=== PATIENT | female | born 1935 | race Caucasian/White ===

== ENCOUNTER 2017-04-14 09:32 | Outpatient (CLI) | payer MEDICARE, BC ==
[~2017-04-14] VITALS: Ht 160 cm; Wt 70.9 kg
--- NOTE | ~2017-04-14 | HEMODYNAMI ---
PATIENT:BLACK DELCID MEDICAL RECORD: [id number] : 31 LOCATION:D.CAT ADMISSION DATE: 04/14/17 Generatedon:04/14/201716:04 Patient name: BLACK DELCID Patient #: [id number] SSN: : 1935 Date of study: 04/14/2017 Page: Of Hemodynamic Procedure Report Patient Data Patient Demographics Procedure consent was obtained First Name: BLACK Gender: Female Last Name: BHAVIN : 1935 Middle Initial: MICAH Age: 81 year(s) Patient #: [id number] Race: Unknown Additional ID: [id number] Contact details [address]: [address] [place] [address] [address]IVE State: [place] City: [place] Zip code: [address] Past Medical History Allergies Allergen Reaction Date Comments Reported Other allergy 04/14/2017 PCN Admission Admission Data Admission Date: 04/14/2017 Admission Time: 9:32 Procedure Procedure Types Cath Procedure Diagnostic Procedure LHC LHC w/Coronaries FFR/IVUS Intra-Coronary IVUS Initial PCI Procedure Coronary Stent Initial Miscellaneous Procedures Moderate Sedation up to 30 minutes Procedure Description Procedure Date Procedure Date: 04/14/2017 Procedure Start Time: 15:44 Procedure End Time: 16:04 Procedure Staff Name Function Paulo Felipe MD Performing Physician Phoebe Betts RT Scrub Adan Mace RN Nurse Shanice Moody RT Monitor Procedure Data Cath Procedure Fluoroscopy Diagnostic fluoroscopy Total fluoroscopy Time: 4.2 time: 4.2 min min Diagnostic fluoroscopy Total fluoroscopy dose: 589 dose: 589 mGy mGy Contrast Material Contrast Material Type Amount (ml) Isovue 300 65 Entry Location Entry Primary Successful Side Size Upsize Upsize Entry Closure Succes sful Closure Location (Fr) 1 (Fr) 2 (Fr) Remarks Device Remarks Femoral Right 5 Fr 6 Fr artery Short Estimated blood loss: 10 ml Diagnostic catheters Device Type Used For End Catheter Placement Cordis 5Fr Pigtail LV Angiography Catheter (MP) Cordis 5Fr JL 4.0 Left Coronary Catheter (MP) Angiography Cordis 5Fr 3DRC Catheter Right Coronary (MP) Angiography Procedure Complications No complications Procedure Medications Medication Administration Route Dosage Oxygen NC 2 l/min Heparin Flush Bag added to field 2 bags (1000units/500ml NS) 0.9% NaCl I.V. 100 ml/hr Fentanyl I.V. 50 mcg Versed I.V. 1 mg Fentanyl I.V. 50 mcg Versed I.V. 1 mg Heparin Bolus I.V. 4000 units Hemodynamics Rest Heart Rate: 86 (bpm) Snapshots Pre Cath Intra NCS Post Cath Vital Signs Time Heart Resp SPO2 NIBP (mmHg) Rhythm Pain Sedation Rate (ipm) (%) Status Level (bpm) 15:29:58 85 20 94 138/69(112) NSR 0 (11) 10(A) , No pain 15:34:12 88 18 92 124/75(106) NSR 0 (11) 10(A) , No pain 15:38:26 70 16 97 125/64(103) NSR 0 (11) 9(A) , No pain 15:42:42 71 16 82 119/58(96) NSR 0 (11) 9(A) , No pain 15:46:56 71 17 93 115/56(86) NSR 0 (11) 9(A) , No pain 15:51:08 72 16 91 118/58(87) NSR 0 (11) 9(A) , No pain 15:55:22 73 16 96 115/59(94) NSR 0 (11) 9(A) , No pain 15:59:34 75 17 98 122/62(94) NSR 0 (11) 9(A) , No pain 16:01:45 76 18 97 118/62(93) NSR 0 (11) 9(A) , No pain Medications Time Medication Route Dose Verified Delivered Reason Notes Effectiveness by by 15:35:34 Oxygen NC 2 Adan Arellnao Per physician l/min Rodri Mace RN RN 15:35:45 Heparin Flush added 2 Adan Arellano used for Bag to bags Rodri Mace RN procedure (1000units/500ml field RN NS) 15:35:55 0.9% NaCl I.V. 100 Adan Arellano Per physician ml/hr Rodri Mace RN RN 15:37:15 Fentanyl I.V. 50 Adan Adan for sedation mcg Rodri Mace RN RN 15:37:21 Versed I.V. 1 mg Adan Arellano for sedation Rodri Mace RN RN 15:54:49 Fentanyl I.V. 50 Adan Arellano for sedation mcg Rodri Mace RN RN 15:54:51 Versed I.V. 1 mg Adan Arellano for sedation Rodri Mace RN RN 15:56:32 Heparin Bolus I.V. 4000 Adan Adan for units Rodri Mace RN anticoagulation project archivist Log Time Note 14:50:49 Adan Mace RN sent for patient. Start room use. 14:57:03 Time tracking: Regular hours 14:57:07 Plan of Care:Hemodynamics will remain stable., Cardiac rhythm will remain stable., Comfort level will be maintained., Respiratory function will remain adequate., Patient/ family verbilizes understanding of procedure., Procedure tolerated without complication., Recovers from procedure without complications.. 15:05:47 Patient received from Pre/Post Procedure Room to CCL 2 Alert and oriented. Tansferred to table in Supine position. 15:06:02 H&P Date Dictated: 04/07/2017 Within 30 days and on chart., H&P Addendum completed by physician on day of procedure. (MUST COMPLETE FOR ALL OUTPATIENTS). 15:06:04 Pre-procedure instructions explained to patient. 15:06:38 Pre-op teaching completed and patient verbalized understanding. 15:06:41 Family in waiting room. 15:06:43 Patient NPO since Midnight. 15:07:04 Patient allergic to Other allergyPCN 15:07:12 Is the patient allergic to Iodine/contrast media? No. 15:24:11 Snore? Yes 15:24:23 Dentures? Yes in tight 15:24:51 Sleep apnea? No 15:24:57 Is patient on blood thinner?Yes 15:25:01 ACC The patient was administered the following blood thiners within the last 24 hours: ACCAspirin, ACCPlavix 15:25:04 Patient diabetic? No. 15:25:11 Patient pain scale 0/10 ?. 15:25:27 IV patent on arrival in left forearm with 0.9% NaCl at KVO. 15:25:49 Lab results completed and on chart. 15:25:57 Right Radial & Right Groin area was prepped with chlora-prep and draped in sterile fashion 15::58 Alarms reviewed by R. N. 15::58 Sharps counted by scrub and verified by R.N. 15::03 Warm blankets applied, and camden hugger turned on for patient comfort. 15::04 Correct patient and procedure confirmed by team. 15::06 Signed procedure consent form obtained from patient. 15::54 Vital chart was started 15::22 ECG and BP/O2 sat monitors applied to patient. 15:30:24 Baseline sample Acquired. 15::28 Rhythm: sinus rhythm 15::30 Full Disclosure recording started 15::34 Physician paged 15::35 Physician arrived 15::36 --------ALL STOP TIME OUT------ 15:30:37 Final Timeout: patient, procedure, and site verified with staff and physician. All members of the team are in agreement. 15:30:39 Right groin site verified by team. 15:30:43 Physical assessment completed. ASA score P 2 - A patient with mild systemic disease as per Paulo Felipe MD. 15:30:49 Sedation plan: IV Moderate Sedation Versed, Fentanyl 15:33:24 Deviated septum? No 15:33:24 Opens mouth fully? Yes 15:33:25 Sticks out tongue? Yes 15:33:27 Airway obstruction? No ? 15:33:31 Pre procedure: right dorsailis pedis pulse 2+ Normal; easily identifiable; not easily obliterated 15:34:44 Use device set Femoral Dx 15:34:45 Acist Syringe opened to sterile field. 15:34:45 Bag Decanter opened to sterile field. 15:34:46 Medline Cath Pack opened to sterile field. 15:34:46 Terumo 5Fr [place] Sheath opened to sterile field. 15:34:47 St Cornell 260cm J .035 wire opened to sterile field. 15:34:51 Acist Hand Control opened to sterile field. 15:34:52 Acist Manifold opened to sterile field. 15:34:53 Diagnostic Infinity 5Fr Multipack catheter opened to sterile field. 15:34:53 Tegaderm 4 x 4 opened to sterile field. 15:35:34 Oxygen 2 l/min NC was administered by Adan Mace RN; Per physician; 15:35:45 Heparin Flush Bag (1000units/500ml NS) 2 bags added to field was administered by Adan Mace RN; used for procedure; 15:35:55 0.9% NaCl 100 ml/hr I.V. was administered by Adan Mace RN; Per physician; 15:37:15 Fentanyl 50 mcg I.V. was administered by Adan Mace RN; for sedation; 15:37:21 Versed 1 mg I.V. was administered by Adan Mace RN; for sedation; 15:42:16 Zero performed for pressure channel P1 15:44:55 Procedure started. 15:44:59 Local anesthetic to right femoral artery with Lidocaine 2% by Paulo Felipe MD.INITIAL ACCESS ONLY 15:45:34 A Cordis 5Fr Pigtail Catheter (MP) was advanced over the wire and used for LV Angiography. 15:45:46 A 5 Fr sheath was inserted into the Right Femoral artery 15:45:51 [employer] Super Stiff Angled 260cm glide wire opened to sterile field. 15:45:58 SS Cummings wire advanced. 15:46:41 Wire removed. 15:46:48 LV gram done using EDWARDS 15:46:56 EF : 50 % 15:47:03 Injector settings: Ml/sec: 3, Volume: 6, 15:47:04 Catheter removed. 15:47:12 A Cordis 5Fr JL 4.0 Catheter (MP) was advanced over the wire and used for Left Coronary Angiography. 15:49:01 Catheter removed. 15:49:12 A Cordis 5Fr 3DRC Catheter (MP) was advanced over the wire and used for Right Coronary Angiography. 15:50:37 Catheter removed. 15:51:08 Petersen Whisper J 300cm 0.014 guide wire opened to sterile field. 15:51:09 Apexigen BasixCompak Inflation Kit opened to sterile field. 15:51:10 Merit Prelude 6Fr Femoral Sheath (NO COST SUPPLY) opened to sterile field. 15:51:24 FriendsEATtronic Launcher 6Fr 3DRC guide catheter opened to sterile field. 15:52:05 Sheath upsized to a 6 Fr Short. 15:52:16 6 Fr 3DRC guide catheter was inserted over the wire 15:52:57 [place] IVUS Catheter opened to sterile field. 15:53:07 Whisper wire advanced. 15:53:45 IVUS catheter advanced over wire. 15:54:49 Fentanyl 50 mcg I.V. was administered by Adan Mace RN; for sedation; 15:54:51 Versed 1 mg I.V. was administered by Adan Mace RN; for sedation; 15:55:31 IVUS pass to RCA lesion performed. 15:55:32 IVUS catheter removed over wire. 15:56:32 Heparin Bolus 4000 units I.V. was administered by Adan Mace RN; for anticoagulation; 15:57:46 Inflation Number: 1 A FriendsEATtronic Integrity 4.0 X 18 stent was prepped and advanced across the Prox RCA. The stent was deployed at 15 JAYLENE for 0:05 (min:sec). 15:57:58 Stent catheter was removed intact over wire. 15:57:59 Wire removed. 15:58:00 Guide catheter removed. 15:58:16 Cordis 6Fr Exoseal opened to sterile field. 15:58:19 Procedure ended.(Physican Out) 15:59:24 Fluoroscopy time 04.20 minutes. 15:59:51 Fluoroscopy dose: 589 mGy 15:59:51 Flurop Dose total: 589 15:59:57 Contrast amount:Isovue 300 65ml. 15:59:58 Sharps counted by scrub and verified by R.N. 16:00:00 Insertion/operative site no bleeding no hematoma. 16:00:03 Post-op/insertion site Right Femoral artery dressed using a 4 x 4 and Tegaderm. 16:00:06 Post right femoral artery:stable, clean and dry 16:00:07 Post Procedure Pulses reassessed and unchanged 16:00:58 Post procedure: right dorsailis pedis pulse 2+ Normal; easily identifiable; not easily obliterated. 16:01:01 Post-procedure physical assessment completed. ASA score P 2 - A patient with mild systemic disease as per Paulo Felipe MD. 16:01:04 Post procedure rhythm: unchanged. 16:01:07 Estimated blood loss: 10 ml 16:01:08 Post procedure instruction explained to patient.Patient verbalizes understanding. 16::08 Patient needs reinforcement of post procedure teaching. 16::22 Procedure type changed to Cath procedure, Diagnostic procedure, LHC, C w/Coronaries, FFR/IVUS, Intra-Coronary IVUS Initial, PCI procedure, Coronary Stent Initial, Miscellaneous Procedures, Moderate Sedation up to 30 minutes 16:01:27 Procedure Complication : No complications 16:01:29 See physician's report for complete and final results. 16:03:42 Procedure and supply charges have been captured, reviewed, submitted and are correct. 16:03:43 Vital chart was stopped 16:03:47 Report given to Pre/Post Procedure Room. 16:03:50 Patient transfered to Pre/Post Procedure Room with Stretcher. 16:04:02 Procedure ended. 16:04:02 Full Disclosure recording stopped 16:04:06 End room use (Document Last) Intervention Summary Intervention Notes Time ActionType Lesion and Equipment Action# Pressure Duration Attributes Used 15:57:[address] Place stent Prox RCA Medtronic 1 15 00:05 Integrity 4.0 X 18 stent Device Usage Item Name Manufacture Quantity Catalog Number Hospital Part Current Minim al Lot# / Charge Number Stock Stock Serial# Code Acist Acist 1 [id number] 471085 [id number] 20 Syringe [employer] Inc Bag Microtek 1 2002S 038798 17638 167225 5 [employer] Medline Cardinal 1 [id number] 096808 52548 946418 5 Cath Pack Health Terumo 5Fr Terumo 1 [id number] 010639 551126 231526 [address] [place] [address] Cornell 1 [id number] 793200 796645 219475 30 260cm J .035 wire Acist Hand Acist 1 54999 921092 725558 214307 5 Control Medical Systems Inc Acist Acist 1 43186 101854 803243 540361 5 Manifold Medical Systems Inc Diagnostic Cardinal 1 [id number] 119828 39276 136442 30 Infinity Health 5Fr Multipack catheter Tegaderm 4 3M 1 1626W 962216 143128 083866 5 x 4 Cordis 5Fr Cardinal 1 329643 5 Pigtail Health Catheter (MP) Terumo Terumo 1 [id number] 602843 529409 614388 5 Super Stiff Angled 260cm glide wire Cordis 5Fr Cardinal 1 146731 5 JL 4.0 Health Catheter (MP) Cordis 5Fr Cardinal 1 616892 5 3DRC Health Catheter (MP) Petersen Petersen 1 [id number] 250567 890760 642682 5 Whisper J Vascular 300cm 0.014 guide wire Merit Merit 1 [id number] 450398 646807 785267 15 Obatech Medical Inflation Kit Merit Merit 1 [id number] 286118 974154 5 Prelude 6Fr Medical Femoral Sheath (NO COST SUPPLY) Medtronic Medtronic 1 [id number] 395436 515584 716654 1 Launcher 6Fr 3DRC guide catheter [place] 1 [id number] 655193 375616 495045 8 [place] Eagley[place] IVUS Catheter Medtronic Medtronic 1 [id number] 653310 534148 6 [id number] Integrity 4.0 X 18 stent Cordis 6Fr Cardinal 1 [id number] 031203 195409 476872 10 [facility] PinkelStar Signature Audit [place] Stage Time Signature Unsigned Intra-Procedure 04/14/2017 Phoebe 4:04:16 PM Counts RT(R) Signatures Monitor : Shanice Moody Signature : RT Date : Time : [place] [id number] [place] [address]
[~2017-04-14 09:32] MED LIST: BABY ASPIRIN81 MG PO; CARDIZEM CD360 MG PO; CELEBREX200 MG PO; KLOR-CON M2020 MEQ PO; LIPITOR20 MG PO; OS-CAL 500+D TA1 TAB PO; SYNTHROID125 MCG PO
[2017-04-14] MEDS ORDERED: HYDROCODONE-APA1 TAB PO (10:16)
[2017-04-14] MEDS ORDERED: NORVASC5 MG PO (10:16)
[2017-04-14] MEDS ORDERED: LEVOTHYROXINE75 MCG PO (10:17)
[2017-04-14] MEDS ORDERED: PLAVIX75 MG PO (10:19)
[2017-04-14 10:25] VITALS: BP 164/60; Ht 160 cm; Wt 70.9 kg
[2017-04-14 11:49] LABS: BASOPHILS 0.7 % (0-2); EOSINOPHILS 4.6 % (0-7); HEMATOCRIT 28.2 % (36.0-48.0); HEMOGLOBIN 9.8 g/dL (12-16); IMMATURE GRANULOCYTES 0.4 % (0-5); MCH 37.7 pg (26.0-34.0); MCHC 34.8 g/dL (31.0-37.0); MCV 108.5 fL (80.0-100.0); MEAN PLATELET VOLUME 9.9 fL (7.4-10.4); MONOCYTES 11.7 % (2-11); NEUTROPHILS 61.6 % (40-80); RDW 20.9 % (11.5-14.5); WBC 4.5 10x3/uL (4.8-10.8)
[2017-04-14 11:59] LABS: ANION GAP 14.6 mmol/L (8-16); CALCIUM 8.6 mg/dL (8.5-10.1); POTASSIUM - SERUM 4.6 mmol/L (3.5-5.1)
[2017-04-14 12:00] LABS: PLATELET COUNT 249 10x3/uL (130-400)
--- NOTE | 2017-04-14 16:30 | NUR ---
RIGHT GROIN CDI, NO HEMATOMA OR BLEEDING AT SITE, SOFT TO TOUCH, FAMILY AT SIDE
--- NOTE | 2017-04-14 17:00 | NUR ---
NO CHANGE IN RIGHT GROIN, FAMILY AT SIDE, IV PATENT, DENIES NEEDS OR PAIN
--- NOTE | 2017-04-14 19:45 | NUR ---
IV D'C WITH CATH TIP INTACT, RIGHT GROIN CDI, NO HEMATOMA OR BLEEDING NOTED AT SITE, SOFT TO TOUCH. WRITTEN AND VERBAL INSTRUCTIONS GIVEN TO PT AND DAUGHTER- UNDERSTOOD. UP TO RESTROOM-VOID, DENIES CHEST PAIN. D'C HOME WITH DAUGHTER
--- NOTE | 2017-04-15 12:31 | OP ---
PATIENT NAME: BLACK DELCID MEDICAL RECORD: [id number] :31 LOCATION:D.CAT ADMISSION DATE: SURGEON: STEPHANIE VÁSQUEZ MD DATE OF OPERATION: 04/14/2017 PROCEDURES: 1. PTCA stent RCA. 2. Intravascular ultrasound. 3. Left heart catheterization. 4. Selective coronary angiography. 5. Left ventriculogram. INDICATION: Angina and coronary artery disease. PROCEDURE IN DETAIL: After informed consent was obtained and after detailed explanation of risks, benefits as well as alternative therapies, the patient elected to proceed with angiogram and angioplasty. The right femoral area was prepped and draped in normal sterile fashion. The right femoral artery was cannulated via modified Seldinger technique with placement of 6-Malay sheath. All catheters exchanged through this sheath. FINDINGS: The left ventriculogram was performed in standard 30-degree EDWARDS view, revealed good cardiac wall motion throughout all segments. Overall ejection fraction estimated is 60%. SELECTIVE CORONARY ANGIOGRAPHY: 1. Left main showed no significant angiographic disease. 2. Left anterior descending has mild irregularities, but no flow-limiting stenosis. 3. The left circumflex has moderate irregularities, but no flow-limiting stenosis. 4. Right coronary has a 70% stenosis confirmed by intravascular ultrasound in the proximal vessel. PTCA STENT OF THE RCA: The stent used was 4.0 x 18 mm Integrity. Result was 0% residual stenosis. OVERALL IMPRESSION: Successful percutaneous transluminal coronary angioplasty stent of the right coronary artery going from 70% initial stenosis to 0% residual. TRANSINT:[id number] Voice Confirmation ID: [id number] DOCUMENT ID: [id number] STEPHANIE VÁSQUEZ MD at 1231 CC: [id number] DICTATION DATE: 04/14/17 1602 QUALITY CONTROL LAB TECH: 04/14/17 2314 [facility] CLI 04/14/17 [place] [address]
== END 2017-04-14 20:00 | disposition home or self-care (01) ==
LOC: D.CATH 09:32
PROVIDERS: Internal Medicine Interventional Cardiology
DX: I25.119 Atherosclerotic heart disease of native coronary artery with unspecified angina pectoris (principal); Z01.812 Encounter for preprocedural laboratory examination

== ENCOUNTER 2017-07-28 19:03 | Observation (INO) | payer MEDICARE, BC ==
[~2017-07-28] VITALS: Ht 157.5 cm; Wt 68.9 kg
--- NOTE | ~2017-07-28 | HEMODYNAMI ---
PATIENT:BLACK DELCID MEDICAL RECORD: [id number] : 31 LOCATION:[facility] D.[id number] ADMISSION DATE: 07/28/17 Generatedon:07/29/201710:32 Patient name: BLACK DELCID Patient #: [id number] SSN: : 1935 Date of study: 07/29/2017 Page: Of Hemodynamic Procedure Report Patient Data Patient Demographics Procedure consent was obtained First Name: BLACK Gender: Female Last Name: BHAVIN : 1935 Middle Initial: MICAH Age: 81 year(s) Patient #: [id number] Race: Unknown Additional ID: [id number] Contact details [address]: [address] [place] [address] [address]IVE State: [place] City: [place] Zip code: [address] Past Medical History Allergies Allergen Reaction Date Comments Reported Other allergy 04/14/2017 PCN Other allergy 07/29/2017 penicillin Admission Admission Data Admission Date: 07/28/2017 Admission Time: 23:14 Arrival Date: 07/29/2017 Arrival Time: 0:00 Admit Source: Other Insurance Payor: Medicare Room #: D.[id number] Height (in.): 62 BSA: 1.7 (m2) Height (cm.): 157.48 BMI: 27.84 (kg/m2) Weight (lbs.): 152.23 Weight (kg.): 69.05 Lab Results Lab Result Date: 07/29/2017 Lab Result Time: 0:00 Biochemistry Name Units Result Min Max BUN mg/dl 21 --(----)-* 7 18 Creatinine mg/dl 1.1 --(--*-)-- 0.6 1.3 CBC Name Units Result Min Max Hemoglobin g/dl 9.9 *-(----)-- 13.5 17.5 Procedure Procedure Types Cath Procedure Diagnostic Procedure LHC LHC w/Coronaries Miscellaneous Procedures Moderate Sedation up to 30 minutes Procedure Description Procedure Date Procedure Date: 07/29/2017 Procedure Start Time: 10:17 Procedure End Time: 10:30 Procedure Staff Name Function Shaquille Layne MD Performing Physician Osmany Banks RT Scrub Adan Mace RN Nurse Kathi Rutherford RT Monitor Procedure Data Cath Procedure Fluoroscopy Diagnostic fluoroscopy Total fluoroscopy Time: 1.6 time: 1.6 min min Diagnostic fluoroscopy Total fluoroscopy dose: 270 dose: 270 mGy mGy Contrast Material Contrast Material Type Amount (ml) Isovue 300 55 Entry Location Entry Primary Successful Side Size Upsize Upsize Entry Closure Succes sful Closure Location (Fr) 1 (Fr) 2 (Fr) Remarks Device Remarks Femoral Right 5 Fr Exoseal artery Estimated blood loss: 5 ml Diagnostic catheters Device Type Used For End Catheter Placement Cordis 5Fr JL 4.0 Left Coronary Catheter (MP) Angiography Cordis 5Fr 3DRC Catheter Right Coronary (MP) Angiography Cordis 5Fr Pigtail LV Angiography Catheter (MP) Procedure Complications No complications Procedure Medications Medication Administration Route Dosage Oxygen NC 2 l/min Heparin Flush Bag added to field 2 bags (1000units/500ml NS) 0.9% NaCl I.V. 100 ml/hr Fentanyl I.V. 50 mcg Versed I.V. 1 mg Fentanyl I.V. 50 mcg Versed I.V. 1 mg Hemodynamics Rest BSA: 1.7 (m2) HGB: 9.9 (g/dl) O2 Consumption: Estimated: 159.69 (ml/min) O2 Cons umption indexed: Estimated:93.94 (ml/min/m) Heart Rate: 83 (bpm) Pressure Samples Time Site Value (mmHg) Purpose Heart Use Rate(bpm) 10:26 LV 121/-6,8 EDP 73 Gradients Valve Time Site Site Mean SEP/DFP Peak To Heart Use 1 2 (mmHg) (sec/min) Peak Rate (mmHg) (bpm) Aortic 10:27 LV AO 83 Snapshots Pre Cath Intra NCS Post Cath Vital Signs Time Heart Resp SPO2 etCO2 NIBP (mmHg) Rhythm Pain Sedation Rate (ipm) (%) (mmHg) Status Level (bpm) 10:01:45 86 16 99 0 145/81(118) NSR 0 (11) 10(A) , No pain 10:06:30 82 17 98 0 122/63(101) NSR 0 (11) 10(A) , No pain 10:11:12 84 19 94 0 124/59(93) NSR 0 (11) 10(A) , No pain 10:15:53 84 18 95 0 108/58(88) NSR 0 (11) 10(A) , No pain 10:20:33 83 17 96 0 113/60(86) NSR 0 (11) 9(A) , No pain 10:25:14 83 18 97 0 119/57(87) NSR 0 (11) 9(A) , No pain 10:29:30 82 11 97 0 123/59(93) NSR 0 (11) 9(A) , No pain Medications Time Medication Route Dose Verified Delivered Reason Notes Effec tiveness by by 10:01:40 Oxygen NC 2 Shaquille Adan Per l/min Xi Mace RN physician 10:01:51 Heparin Flush added 2 Shaquille Adan used for Bag to bags Xi Mace RN procedure (1000units/500ml field NS) 10:01:59 0.9% NaCl I.V. 100 Shaquille Adan Per ml/hr Xi Mace RN physician 10:17:16 Fentanyl I.V. 50 Shaquille Adan for mcg Xi Mace RN sedation 10:17:23 Versed I.V. 1 mg Shaquille Adan for Xi Mace RN sedation 10:20:32 Fentanyl I.V. 50 Shaquille Adan for mcg Xi Mace RN sedation 10:20:36 Versed I.V. 1 mg Shaquille Adan for Xi Mace RN sedation Procedure Log Time Note 9:24:01 Patient Height : 62 inches 9:24:07 Patient Weight : 152.23 lbs 9:24:15 Admit Source: Other 9:24:55 Lab Result : Hemoglobin 9.9 g/dl 9:24:55 Lab Result : Creatinine 1.1 mg/dl 9:24:55 Lab Result : BUN 21 mg/dl 9:26:45 Diagnostic Cath status Elective 9:26:48 Adan Mace RN sent for patient. Start room use. 9:26:52 Time tracking: Call back 9:27:00 Plan of Care:Hemodynamics will remain stable., Cardiac rhythm will remain stable., Comfort level will be maintained., Respiratory function will remain adequate., Patient/ family verbilizes understanding of procedure., Procedure tolerated without complication., Recovers from procedure without complications.. 9:27:07 Patient received from Med II to CCL 1 Alert and oriented. Tansferred to table in Supine position. 9:53:24 Warm blankets applied, and camden hugger turned on for patient comfort. 9:53:25 Correct patient and procedure confirmed by team. 9:53:27 Signed procedure consent form obtained from patient. 9:53:28 ECG and BP/O2 sat monitors applied to patient. 10:00:47 Vital chart was started 10:01:40 Oxygen 2 l/min NC was administered by Adan Mace RN; Per physician; 10:01:51 Heparin Flush Bag (1000units/500ml NS) 2 bags added to field was administered by Adan Mace RN; used for procedure; 10:01:59 0.9% NaCl 100 ml/hr I.V. was administered by Adan Mace RN; Per physician; 10:02:29 Baseline sample Acquired. 10:02:35 Rhythm: sinus rhythm 10:02:37 Full Disclosure recording started 10:02:42 H&P Date Dictated: 07/29/2017 New H&P dictated by physician.. 10:02:44 Pre-procedure instructions explained to patient. 10:02:45 Pre-op teaching completed and patient verbalized understanding. 10:03:08 Family in patients room. 10:03:10 Patient NPO since Midnight. 10:03:23 Patient allergic to Other allergypenicillin 10:03:27 Is the patient allergic to Iodine/contrast media? No. 10:03:28 Was the patient premedicated? No 10:03:29 Is patient on blood thinner?Yes 10:03:32 ACC The patient was administered the following blood thiners within the last 24 hours: ACCPlavix 10:04:32 Patient diabetic? No. 10:04:36 Previous problem with sedation/anesthesia? No ? 10:04:45 Snore? Yes 10:04:47 Sleep apnea? No 10:04:48 Deviated septum? No 10:04:48 Opens mouth fully? Yes 10:04:49 Sticks out tongue? Yes 10:04:51 Airway obstruction? No ? 10:04:58 Dentures? Yes in tight 10:05:01 Pre procedure: right dorsailis pedis pulse 1+ Palpable, but thready & weak; easily obliterated 10:05:03 Pre procedure: left dorsailis pedis pulse 1+ Palpable, but thready & weak; easily obliterated 10:05:05 Patient pain scale 0/10 ?. 10:05:12 IV patent on arrival in left antecubital with 0.9% NaCl at [facility]. 10:05:14 Lab results completed and on chart. 10:05:20 Right groin area was prepped with chlora-prep and draped in sterile fashion 10:05:21 Alarms reviewed by R. N. 10:05:21 Sharps counted by scrub and verified by R.N. 10:05:23 Physician arrived 10:05:23 --------ALL STOP TIME OUT------ 10:05:24 Final Timeout: patient, procedure, and site verified with staff and physician. All members of the team are in agreement. 10:05:26 Right groin site verified by team. 10:05:29 Physical assessment completed. ASA score P 2 - A patient with mild systemic disease as per Shaquille Layne MD. 10:05:33 Sedation plan: IV Moderate Sedation Versed, Fentanyl 10:05:38 Use device set Femoral Dx 10:05:39 Acist Syringe opened to sterile field. 10:05:40 Bag Decanter opened to sterile field. 10:05:40 Medline Cath Pack opened to sterile field. 10:05:40 Terumo 5Fr Slaughter Sheath opened to sterile field. 10:05:41 St Cornell 260cm J .035 wire opened to sterile field. 10:05:42 Acist Hand Control opened to sterile field. 10:05:43 Acist Manifold opened to sterile field. 10:05:43 Diagnostic Infinity 5Fr Multipack catheter opened to sterile field. 10:05:43 Tegaderm 4 x 4 opened to sterile field. 10:05:51 Cook 4Fr Micropuncture Set ([id number]) opened to sterile field. 10:14:39 Arrival Date: 07/29/2017 12:00:00 AM 10:14:46 Insurance Payor : Medicare 10:15:34 Zero performed for pressure channel P1 10:15:52 Procedure started. 10:17:16 Fentanyl 50 mcg I.V. was administered by Adan Mace RN; for sedation; 10:17:23 Versed 1 mg I.V. was administered by Adan Mace RN; for sedation; 10:17:53 Local anesthetic to right femoral artery with Lidocaine 2% by Shaquille Layne MD.INITIAL ACCESS ONLY 10:18:13 Access obtained with 4Fr micropunture. 10:19:36 A 5 Fr sheath was inserted into the Right Femoral artery 10:20:31 A Cordis 5Fr JL 4.0 Catheter (MP) was advanced over the wire and used for Left Coronary Angiography. 10:20:32 Fentanyl 50 mcg I.V. was administered by Adan Mace RN; for sedation; 10::36 Versed 1 mg I.V. was administered by Adan Mace RN; for sedation; 10:21:05 LCA angiography performed. 10:21:08 Injector settings: Ml/sec: 3, Volume: 6, 10:21:55 Catheter removed. 10:22:39 A Cordis 5Fr 3DRC Catheter (MP) was advanced over the wire and used for Right Coronary Angiography. 10:23:39 RCA angiography performed. 10:24:28 Catheter removed. 10:25:03 A Cordis 5Fr Pigtail Catheter (MP) was advanced over the wire and used for LV Angiography. 10:26:53 LV hemodynamics recorded. 10:26:54 LV gram done using EDWARDS 10::57 Injector settings: Ml/sec: 5, Volume: 15, 10:27:25 EF : 75 % 10:27:28 Catheter removed. 10:27:45 Cordis 5Fr Exoseal opened to sterile field. 10:28:26 Sheath removed intact; hemostasis achieved with Exoseal to the Right Femoral artery. 10:28:29 Procedure ended.(Physican Out) 10:29:16 Fluoroscopy time 01.60 minutes. 10::21 Fluoroscopy dose: 270 mGy 10::21 Flurop Dose total: 270 10::27 Contrast amount:Isovue 300 55ml. 10::29 Sharps counted by scrub and verified by R.N. 10:29:31 Insertion/operative site no bleeding no hematoma. 10:29:35 Post-op/insertion site Right Femoral artery dressed using a 4 x 4 and Tegaderm. 10:29:37 Post Procedure Pulses reassessed and unchanged 10:29:40 Post procedure rhythm: unchanged. 10:29:43 Estimated blood loss: 5 ml 10:29:45 Post procedure instruction explained to patient.Patient verbalizes understanding. 10:29:45 Patient needs reinforcement of post procedure teaching. 10:29:58 Procedure type changed to Cath procedure, Diagnostic procedure, LHC, LHC w/Coronaries, Miscellaneous Procedures, Moderate Sedation up to 30 minutes 10:30:00 Procedure and supply charges have been captured, reviewed, submitted and are correct. 10:30:06 Procedure Complication : No complications 10:30:08 Vital chart was stopped 10:30:09 See physician's report for complete and final results. 10:30:24 Report given to Med II. 10:30:27 Patient transfered to Med II with Stretcher. 10:30:29 Procedure ended. 10:30:29 Full Disclosure recording stopped 10:30:34 End room use (Document Last) Device Usage Item Name Manufacture Quantity Catalog Hospital Part Current Minimal Lot# / Number Charge Number Stock Stock Serial# Code Acist Syringe Acist 1 20386 075419 671513 124377 20 [employer] Inc Bag Decanter Microtek 1 2002S 817354 02428 122106 5 Medical Inc. Medline Cath Cardinal 1 [id number] [id number] 26438 088955 5 Pack Health Terumo 5Fr Terumo 1 [id number] 648700 906785 817451 [address] Cornell 260[address] St Cornell 1 [id number] 832134 215739 859715 30 J .035 wire Acist Hand Acist 1 20347 734792 305996 227279 5 Control [employer] Inc Acist Acist 1 94479 143878 827804 509701 5 Manifold Medical [employer] Inc Diagnostic Cardinal 1 [id number] 006656 03134 590984 30 Infinity 5Fr Health Multipack catheter Tegaderm 4 x 3M 1 1626W 007632 613129 551729 5 4 Cook 4Fr Cook Medical 1 [id number] 213381 274157 609578 5 Micropuncture Set ([id number]) Cordis 5Fr JL Cardinal 1 347335 5 4.0 Catheter Health (MP) Cordis 5Fr Cardinal 1 778366 5 3DRC Catheter Health (MP) Cordis 5Fr Cardinal 1 979234 5 Pigtail Health Catheter (MP) Cordis 5Fr Cardinal 1 EX500 216906 794134 248154 10 [facility] Health Signature Audit [place] Stage Time Signature Unsigned Intra-Procedure 07/29/2017 Kathi Rutherford 10:32:24 AM RT(R) Signatures Monitor : Kathi Rutherford RT Signature : Date : Time : [place] [id number] [place] [address]
[~2017-07-28 19:03] MED LIST changes: +HYDROCODONE-APA1 TAB PO; +LEVOTHYROXINE75 MCG PO; +NORVASC5 MG PO; +PLAVIX75 MG PO
[2017-07-28 19:44] LABS: BASOPHILS 0.2 % (0-2); EOSINOPHILS 3.1 % (0-7); HEMATOCRIT 28.5 % (36.0-48.0); HEMOGLOBIN 9.9 g/dL (12-16); IMMATURE GRANULOCYTES 0.2 % (0-5); LYMPHOCYTES 19.6 % (15-50); MCH 38.1 pg (26.0-34.0); MCHC 34.7 g/dL (31.0-37.0); MCV 109.6 fL (80.0-100.0); MEAN PLATELET VOLUME 9.6 fL (7.4-10.4); MONOCYTES 8.6 % (2-11); NEUTROPHILS 68.3 % (40-80); PLATELET COUNT 257 10x3/uL (130-400); WBC 4.5 10x3/uL (4.8-10.8)
[2017-07-28 19:48] LABS: ALKALINE PHOSPHATASE 92 U/L (46-116); ALT (SGPT) 21 U/L (10-68); CALC OSMOLALITY 280 mosm/kg (275-300); CALCIUM 8.9 mg/dL (8.5-10.1); CARBON DIOXIDE 25.5 mmol/L (21.0-32.0); CHLORIDE - SERUM 103 mmol/L (98-107); CREATININE - SERUM 1.1 mg/dL (0.6-1.3); GLUCOSE 138 mg/dL (74-106); POTASSIUM - SERUM 4.2 mmol/L (3.5-5.1); PROTEIN - SERUM 6.9 g/dL (6.4-8.2); SODIUM 138 mmol/L (136-145); UREA NITROGEN 21 mg/dL (7-18); eGFR NON AFRICAN AMERICAN 50 mL/min (90-120)
[2017-07-28 19:58] LABS: CKMB 0.8 U/L (0.0-3.6); CREATINE KINASE 42 UL (21-215); THYROID STIMULATING HORMONE 12.15 uIU/mL (0.36-3.74)
[2017-07-28 19:59] LABS: TROPONIN-I < 0.017 ng/mL (0.000-0.060)
[2017-07-28 23:10] LABS: APPEARANCE CLEAR (CLEAR); BILIRUBIN NEGATIVE (NEGATIVE); COLOR YELLOW (YELLOW); GLUCOSE NEGATIVE (NEGATIVE); KETONE NEGATIVE (NEGATIVE); NITRITE NEGATIVE (NEGATIVE); PROTEIN NEGATIVE (NEGATIVE); UROBILINOGEN NORMAL (NORMAL)
[2017-07-29] VITALS: BP 145/66
--- NOTE | 2017-07-29 00:10 | NUR ---
RECIEVED TO ROOM 2122, PT A&O. RESPERATIONS EVEN ON 02 A 2 LITER VIA NC. VITALS STABLE, PT DENIES PAIN OR NEEDS AT THIS TIME, BED LOW, CL IN REACH.
[2017-07-29 00:32] VITALS: BP 145/66; BMI 27.3
[2017-07-29] MEDS ORDERED: MOBIC7.5 MG PO (00:45)
[2017-07-29] MEDS ORDERED: PROBIOTIC1 EAC1 PO (00:48)
[2017-07-29 02:43] LABS: CKMB 0.9 U/L (0.0-3.6); CREATINE KINASE 38 UL (21-215); TROPONIN-I 0.018 ng/mL (0.000-0.060)
--- NOTE | 2017-07-29 04:06 | NUR ---
RESTING WITH EYES CLOSED, RESPERATIONS EVEN, NO S/S DISTRESS NOTED.
--- NOTE | 2017-07-29 07:01 | NUR ---
SPOKE WITH GRACIE IN PHARMACY, ASKED HIM TO RETIME B12 INJECTION TO THIS MORNING DUE TO MEDICATION NOT BEING AVAILABLE IN THE MIDDLE OF THE NIGHT.
--- NOTE | 2017-07-29 07:45 | NUR ---
INTRODUCED MYSELF TO PT PRIMARY RN FOR TODAYS SHIFT. PT A&O RESTING QUIETLY IN BED. RR NONLABORED ON RA. PT HAS BEEN NPO SINCE MIDNIGHT PLANNING FOR CATH TODAY. PT DENIES ANY FURTHER CHEST PAIN SINCE ADMISSION. TELEMETRY RUNNING SR. S1S2 NOTED RRR. PT DENIES ANY CURRENT NEEDS AT THIS TIME, WILL CPOC.
[2017-07-29 07:46] VITALS: BP 135/60
--- NOTE | 2017-07-29 08:00 | NUR ---
SHIFT ASSESSMENT COMPLETED.
[2017-07-29 08:11] LABS: BASOPHILS 0.4 % (0-2); EOSINOPHILS 4.1 % (0-7); HEMATOCRIT 29.4 % (36.0-48.0); HEMOGLOBIN 9.7 g/dL (12-16); IMMATURE GRANULOCYTES 0.2 % (0-5); LYMPHOCYTES 15.9 % (15-50); MCH 35.5 pg (26.0-34.0); MCV 107.7 fL (80.0-100.0); MEAN PLATELET VOLUME 9.4 fL (7.4-10.4); MONOCYTES 11.2 % (2-11); NEUTROPHILS 68.2 % (40-80); PLATELET COUNT 247 10x3/uL (130-400); RBC 2.73 10x6/uL (4.00-5.40); WBC 4.8 10x3/uL (4.8-10.8)
[2017-07-29 08:33] LABS: CALC OSMOLALITY 282 mosm/kg (275-300); CALCIUM 8.9 mg/dL (8.5-10.1); CARBON DIOXIDE 27.2 mmol/L (21.0-32.0); CHLORIDE - SERUM 104 mmol/L (98-107); CKMB 0.9 U/L (0.0-3.6); CREATINE KINASE 30 UL (21-215); CREATININE - SERUM 0.9 mg/dL (0.6-1.3); GLUCOSE 109 mg/dL (74-106); POTASSIUM - SERUM 4.1 mmol/L (3.5-5.1); SODIUM 140 mmol/L (136-145); UREA NITROGEN 20 mg/dL (7-18); eGFR NON AFRICAN AMERICAN 63 mL/min (90-120)
[2017-07-29 08:34] LABS: TROPONIN-I 0.016 ng/mL (0.000-0.060)
--- NOTE | 2017-07-29 09:51 | NUR ---
PRE-OP MEDS GIVEN AND PT LOADED WITH HIGH DOSE PLAVIX ALONG WITH ASA. CONSENTS OBTAINED AND PLACED IN CHART. PT LEAVING UNIT NOW. WILL CPOC.
--- NOTE | 2017-07-29 10:54 | NUR ---
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 IN ROOM DISCUSSING PROCEDURE WITH FAMILY. R.GROIN DRSG CDI NO S/S OF BLEEDING OR HEMATOMA NOTED. PT IS TO REMAIN FLAT FOR 2 HOURS AND VERBALIZED UNDERSTANDING. PERIPHERAL PULSES INTACT. VSS AND BEING MONITERED Q15MIN PER POST PROCEDURE POLICY. NS INFUSING VIA R.AC PIV WITH DRSG CDI AND SWAB CAPS WILL CPOC.
[2017-07-29 11:11] VITALS: Ht 157.5 cm; Wt 68.9 kg
--- NOTE | 2017-07-29 11:36 | NUR ---
PT LYING FLAT WITH FAMILY AT BEDSIDE. DOMINIQUE DRSG CDI WITHOUT ANY S/S OF BLEEDING OR HEMATOMA NOTED. VSS AND STILL BEING MONITERED. D/C PAPERS COMPLETED AND WILL GO OVER SOON, PT ABLE TO LEAVE AT 1400 IF NOTHING COMES UP.
--- NOTE | 2017-07-29 13:00 | NUR ---
2 HOUR FLAT LAY COMPLETE. ASSISTED PT TO SIT UP IN BED. VSS AND R.GROIN DRSG CDI WITHOUT S/S OF HEMATOMA NOTED. PERIPHERAL PULSES INTACT. NO FURTHER NEEDS AT THIS TIME. WILL CPOC.
--- NOTE | 2017-07-29 13:43 | NUR ---
D/C PTS R.AC PIV WITH CATH TIP FULLY INTACT. DISCHARGE TEACHING PROVIDED AND PAPERS SIGNED. PT DENIES ANY QUESTIONS OR CONCERNS. PT IS GETTING DRESSED WITH FAMILY ASSISTANCE AND COLLECTING BELONGINGS. WILL CTM UNTIL 1400 WHEN PT CAN ACTUALLY LEAVE.
--- NOTE | 2017-07-29 14:13 | NUR ---
PT NOW LEAVING AND DENIES ANY QUESTIONS OR CONCERNS.
[2017-07-31 11:13] LABS: FOLATE (FOLIC ACID) - SERUM >20.0 ng/mL (>3.0)
== END 2017-07-29 14:14 | disposition home or self-care (01) ==
LOC: D.ER 19:03 → D.M2 23:14 → OBSVTIME 23:14 → D.M2 07-29 14:14
PROVIDERS: Emergency Medicine; ADMIT Internal Medicine Cardiovascular Disease
DX: R07.89 Other chest pain (principal); I25.10 Atherosclerotic heart disease of native coronary artery without angina pectoris; T82.855A Stenosis of coronary artery stent, initial encounter; Y83.8 Other surgical procedures as the cause of abnormal reaction of the patient, or of later complication, without mention of misadventure at the time of the procedure; E05.90 Thyrotoxicosis, unspecified without thyrotoxic crisis or storm